=== PATIENT | female | born 1955 | race Hispanic/Latino ===

== ENCOUNTER 2021-10-26 20:06 | Inpatient (IN) | payer MEDICARE ==
[~2021-10-26] VITALS: Ht 152.4 cm; Wt 88.8 kg
[2021-10-26] MEDS ORDERED: ACETAMINOPHEN 120 MG SUPPOSITORY RC ONE (20:26)
[2021-10-26] MEDS ORDERED: DOXYCYCLINE HYCLATE 100 MG TABLET PO SCH (20:30)
[2021-10-26] MEDS ORDERED: CEFTRIAXONE 1G VIAL IVP ONE (20:30)
[2021-10-26] MEDS ORDERED: METOPROLOL TARTRATE 1 MG/ML 5ML VIAL IV ONE (20:30)
[2021-10-26 20:35] LABS: ABG BASE EXCESS -15.6 mmol/L (-2.0-3.0); ABG OXYGEN SATURATION 95.4 % (95.0-99.0); ABG PCO2 29 mmHg (32-45)
[2021-10-26 20:37] LABS: BASOPHILS % (AUTO) 0.6 % (0.0-5.0); EOSINOPHILS % (AUTO) 0.1 % (0.0-8.0); HEMATOCRIT 35.7 % (36-48); LYMPHOCYTES % (AUTO) 20.4 % (21.0-51.0); MEAN CORPUSCULAR HEMOGLOBIN 31.8 pg (27.0-33.0); MEAN CORPUSCULAR HGB CONC 31.9 g/dL (32.0-36.0); MEAN CORPUSCULAR VOLUME 99.7 fL (79-99); MONOCYTES % (AUTO) 9.3 % (3.0-13.0); NEUTROPHILS % (AUTO) 66.5 % (40.0-77.0); PLATELET COUNT (AUTO) 237 K/uL (130-400); RED BLOOD CELL COUNT(AUTO) 3.58 MIL/uL (4.00-5.50); RED CELL DISTRIBUTION WIDTH 14.5 % (11.0-15.5); WHITE BLOOD COUNT (AUTO) 9.4 K/uL (4.8-10.8)
[2021-10-26 20:51] LABS: CREATININE 2.3 mg/dL (0.5-1.5)
[2021-10-26 20:57] LABS: APPEARANCE,URINE Cloudy (CLEAR); BILIRUBIN,URINE Small (NEGATIVE); COLOR,URINE Dark Yellow (YELLOW); GLUCOSE, URINE (UA) 250 mg/dL (NEGATIVE); KETONES,URINE Trace mg/dL (NEGATIVE); LEUKOCYTE ESTERASE ,URINE Negative (NEGATIVE); NITRATE,URINE Negative (NEGATIVE); OCCULT BLOOD,URINE Large (NEGATIVE); PH,URINE 5.5 (5.0-8.0); PROTEIN,URINE >=1000 mg/dL (NEGATIVE)
[2021-10-26] MEDS: SODIUM BICARB 50MEQ 50ML VIAL IV SCH (21:00)
[2021-10-26 21:03] LABS: B-TYPE NATRIURETIC PEPTIDE 652 pg/mL (0-100)
[2021-10-26 21:14] LABS: BILIRUBIN,TOTAL 1.8 mg/dL (0.2-1.0); TOTAL PROTEIN, SERUM 8.1 g/dL (6.0-8.3)
[2021-10-26 21:21] LABS: BACTERIA,URINE Few /HPF (None Seen); RBC,URINE None Seen /HPF (0-1); SQUAMOUS EPITHELIAL CELL,UR Many /HPF (0-2)
[2021-10-26] MEDS ORDERED: AZITHROMYCIN 500MG+NS 250ML IVPB SCH (21:30)
[2021-10-26] MEDS ORDERED: DEXAMETHASONE SOD PHOSPHATE 4 MG/ML 1ML VIAL IVP ONE (21:30)
[2021-10-26 23:35] LABS: INR 1.09 (0.85-1.15); PROTHROMBIN TIME 11.8 SEC (9.6-11.6)
[2021-10-26 23:37] LABS: PARTIAL THROMBOPLASTIN TIME 25.3 SEC (26.3-35.5)
[2021-10-27] VITALS (19 sets, daily range): BP systolic 108–164; BP diastolic 60–79
[2021-10-27] MEDS ORDERED: ATOR20TA65 PO (04:57)
[2021-10-27] MEDS ORDERED: GABA800T9 PO ×2 (04:57→08:38)
[2021-10-27] MEDS ORDERED: INSU100C14 SQ (04:57)
[2021-10-27] MEDS ORDERED: VITAD50000 PO (04:57)
[2021-10-27] MEDS ORDERED: IRBE300T18 PO (04:57)
[2021-10-27] MEDS ORDERED: METF-444 PO (04:57)
[2021-10-27] MEDS ORDERED: INSLAN SQ ×2 (04:57)
[2021-10-27] MEDS ORDERED: METO-408 PO (04:57)
[2021-10-27] MEDS: INSULIN HUMULIN R 100 UNIT/ML 3ML SQ SCH ×4 (06:48→20:20)
[2021-10-27 07:43] LABS: ABG OXYGEN SATURATION 99.4 % (95.0-99.0); ABG PCO2 31 mmHg (32-45)
[2021-10-27] MEDS ORDERED: BUDESONIDE 0.5 MG/2 ML INH IH ONE (07:48)
[2021-10-27] MEDS ORDERED: IPRATROPIUM/ALBUTEROL SULFATE 3 ML SOLUTION IH ONE (07:48)
[2021-10-27] MEDS ORDERED: SODIUM CHLORIDE 7% INHALATION 4 ML VIAL.NEB IH ONE (07:48)
[2021-10-27] MEDS: BUDESONIDE 0.25 MG/2 ML INH IH SCH ×2 (08:00→18:53)
[2021-10-27] MEDS ORDERED: 0.9%NACL 1000ML 1,000 ML IV SCH (08:00)
[2021-10-27] MEDS: ALBUTEROL 0.042% 1.25MG/3ML IH SCH ×4 (08:00→23:20)
[2021-10-27] MEDS ORDERED: PHARMACY COMMUNICATION MISC SCH (08:00)
[2021-10-27 08:20] LABS: HEMATOCRIT 31.3 % (36-48); MEAN CORPUSCULAR HEMOGLOBIN 32.9 pg (27.0-33.0); MEAN CORPUSCULAR HGB CONC 33.9 g/dL (32.0-36.0); MEAN CORPUSCULAR VOLUME 97.2 fL (79-99); NUCLEATED RED BLOOD CELLS 0.5 % (0.0-0.19); PLATELET COUNT (AUTO) 236 K/uL (130-400); RED BLOOD CELL COUNT(AUTO) 3.22 MIL/uL (4.00-5.50); RED CELL DISTRIBUTION WIDTH 14.6 % (11.0-15.5); WHITE BLOOD COUNT (AUTO) 14.6 K/uL (4.8-10.8)
[2021-10-27] MEDS ORDERED: METO-391 PO (08:38)
[2021-10-27] MEDS ORDERED: IRBE150T24 PO (08:38)
[2021-10-27] MEDS ORDERED: OMEP20TA20 PO (08:38)
[2021-10-27] MEDS ORDERED: PRAV10TA39 PO (08:38)
[2021-10-27] MEDS ORDERED: SPIR25TA6 PO (08:38)
[2021-10-27 08:43] LABS: ALBUMIN 2.6 g/dL (3.5-5.0); BILIRUBIN,TOTAL 1.4 mg/dL (0.2-1.0); CREATININE 2.7 mg/dL (0.5-1.5); POTASSIUM 4.3 mmol/L (3.5-5.1)
[2021-10-27] MEDS ORDERED: ENOXAPARIN SODIUM 1 MG/KG SQ SCH (09:00)
[2021-10-27] MEDS ORDERED: HEPARIN 5,000 UNIT VIAL SQ SCH ×2 (09:00→22:00)
[2021-10-27 09:03] LABS: BAND NEUTROPHILS % (MANUAL) 3 % (0-2); EOSINOPHILS % (MANUAL) 5 % (1-6); LYMPHOCYTES % (MANUAL) 10 % (22-44); REACTIVE LYMPHOCYTES 1 % (0-0); SEGMENTED NEUTROPHILS % 81 % (40-70)
[2021-10-27 09:04] LABS: MAN.DIFF COMMENT-IMPRESSION MANUAL DIFFERENTIAL
[2021-10-27 09:05] LABS: PLATELET MORPHOLOGY COMMENT ADEQUATE
[2021-10-27] MEDS: PANTOPRAZOLE 40 MG/VIAL IVP SCH (09:06)
[2021-10-27] MEDS: DEXAMETHASONE SOD PHOSPHATE 4 MG/ML 1ML VIAL IV SCH (09:06)
[2021-10-27] MEDS: ASPIRIN 81MG CHEW TAB PO SCH (09:06)
[2021-10-27] MEDS: CEFTRIAXONE 2GM VIAL IVP SCH (09:06)
[2021-10-27] MEDS: DOXYCYCLINE 100MG+NS 250ML IV SCH ×2 (09:06→20:21)
[2021-10-27] MEDS: ARTIFICAL TEARS SOL 15 ML OU SCH (09:07)
[2021-10-27] MEDS: FUROSEMIDE 40MG VIAL IV SCH ×2 (10:30→11:25)
[2021-10-27 10:41] LABS: MYOGLOBIN 3075 ng/mL (10-92)
[2021-10-27 10:50] LABS: CREATINE KINASE, TOTAL 2516 U/L (21-232)
[2021-10-27] MEDS: KCL 20 MEQ ERTAB PO SCH (11:24)
[2021-10-27] MEDS ORDERED: FUROSEMIDE 20MG VIAL IV SCH (12:00)
[2021-10-27] MEDS ORDERED: ASPIRIN 325MG TAB PO SCH (12:00)
[2021-10-27] MEDS ORDERED: HEPARIN 25,000 UNITS/250ML D5W 250 ML IV SCH (12:00)
[2021-10-27] MEDS: FUROSEMIDE 20MG VIAL IV SCH ×2 (13:00→20:25)
[2021-10-27] MEDS ORDERED: DOBUTAMINE 250MG/D5 250ML 250 ML IV SCH (13:00)
[2021-10-27] MEDS ORDERED: CLOPIDOGREL 300MG TAB PO SCH (13:00)
[2021-10-27 13:02] LABS: HEMATOCRIT 32.3 % (36-48); MEAN CORPUSCULAR HEMOGLOBIN 32.7 pg (27.0-33.0); MEAN CORPUSCULAR HGB CONC 33.4 g/dL (32.0-36.0); MEAN CORPUSCULAR VOLUME 97.9 fL (79-99); NUCLEATED RED BLOOD CELLS 0.6 % (0.0-0.19); PLATELET COUNT (AUTO) 225 K/uL (130-400); RED CELL DISTRIBUTION WIDTH 14.8 % (11.0-15.5)
[2021-10-27] MEDS: SODIUM BICARB 50MEQ 50ML VIAL IV SCH ×2 (13:28→21:00)
[2021-10-27 13:43] LABS: BAND NEUTROPHILS % (MANUAL) 4 % (0-2); LYMPHOCYTES % (MANUAL) 7 % (22-44); MAN.DIFF COMMENT-IMPRESSION MANUAL DIFFERENTIAL; MONOCYTES % (MANUAL) 4 % (2-9); SEGMENTED NEUTROPHILS % 85 % (40-70)
[2021-10-27 13:47] LABS: PLATELET MORPHOLOGY COMMENT ADEQUATE
[2021-10-27] MEDS ORDERED: SODIUM BICARB 8.4% 50ML SYRING 0 MEQ in DEXTROSE 5%-WATER 1,000 ML IVP SCH (16:00)
[2021-10-27] MEDS: SODIUM BICARB 8.4% 50ML SYRING 150 MEQ in DEXTROSE 5%-WATER 1,000 ML IVP SCH (18:22)
[2021-10-27] MEDS ORDERED: 0.9% NACL 250ML 250 ML ONE (20:23)
[2021-10-27] MEDS ORDERED: INSULIN GLARGINE 100 UNITS/ML 10 ML VIAL SQ SCH (21:00)
[2021-10-27] MEDS ORDERED: HEPARIN 5,000 UNIT VIAL IV SCH (22:30)
[2021-10-28] VITALS (21 sets, daily range): BP systolic 101–153; BP diastolic 56–93
[2021-10-28] MEDS ORDERED: INSULIN HUMULIN R 100 UNIT/ML 3ML SQ ONE (01:00)
[2021-10-28 04:05] LABS: HEMATOCRIT 30.4 % (36-48); MEAN CORPUSCULAR HEMOGLOBIN 32.2 pg (27.0-33.0); MEAN CORPUSCULAR HGB CONC 33.2 g/dL (32.0-36.0); MEAN CORPUSCULAR VOLUME 96.8 fL (79-99); NUCLEATED RED BLOOD CELLS 0.7 % (0.0-0.19); PLATELET COUNT (AUTO) 221 K/uL (130-400); RED BLOOD CELL COUNT(AUTO) 3.14 MIL/uL (4.00-5.50); RED CELL DISTRIBUTION WIDTH 14.6 % (11.0-15.5); WHITE BLOOD COUNT (AUTO) 17.5 K/uL (4.8-10.8)
[2021-10-28] MEDS: SODIUM BICARB 8.4% 50ML SYRING 150 MEQ in DEXTROSE 5%-WATER 1,000 ML IVP SCH (04:07)
[2021-10-28 04:15] LABS: INR 1.13 (0.85-1.15); PROTHROMBIN TIME 12.2 SEC (9.6-11.6)
[2021-10-28] MEDS: FUROSEMIDE 20MG VIAL IV SCH ×3 (04:34→21:30)
[2021-10-28 04:36] LABS: PARTIAL THROMBOPLASTIN TIME > 139.0 SEC (26.3-35.5)
[2021-10-28 04:45] LABS: LYMPHOCYTES % (MANUAL) 4 % (22-44); MAN.DIFF COMMENT-IMPRESSION MANUAL DIFFERENTIAL; MONOCYTES % (MANUAL) 3 % (2-9); SEGMENTED NEUTROPHILS % 93 % (40-70)
[2021-10-28 04:55] LABS: MAGNESIUM 1.7 mg/dL (1.80-2.40); PHOSPHORUS 2.2 mg/dL (2.5-4.9)
[2021-10-28] MEDS: ALBUTEROL 0.042% 1.25MG/3ML IH SCH ×4 (06:46→23:57)
[2021-10-28] MEDS: BUDESONIDE 0.25 MG/2 ML INH IH SCH ×2 (06:47→17:27)
[2021-10-28 08:04] LABS: ALBUMIN 2.1 g/dL (3.5-5.0); BILIRUBIN,TOTAL 0.6 mg/dL (0.2-1.0); CREATININE 2.1 mg/dL (0.5-1.5); TOTAL PROTEIN, SERUM 6.3 g/dL (6.0-8.3)
[2021-10-28] MEDS: ASPIRIN 81MG CHEW TAB PO SCH (08:35)
[2021-10-28] MEDS: Vitamin B Complex/Vit C/Folic Acid PO SCH (08:36)
[2021-10-28] MEDS: ARTIFICAL TEARS SOL 15 ML OU SCH (08:36)
[2021-10-28] MEDS: CLOPIDOGREL 75MG TAB PO SCH (08:36)
[2021-10-28] MEDS: KCL 20 MEQ ERTAB PO SCH (08:36)
[2021-10-28] MEDS: DOXYCYCLINE 100MG+NS 250ML IV SCH ×2 (08:36→21:30)
[2021-10-28] MEDS: CEFTRIAXONE 2GM VIAL IVP SCH (08:37)
[2021-10-28] MEDS: PANTOPRAZOLE 40 MG/VIAL IVP SCH (08:37)
[2021-10-28] MEDS: DEXAMETHASONE SOD PHOSPHATE 4 MG/ML 1ML VIAL IV SCH (08:37)
[2021-10-28] MEDS ORDERED: CLOPIDOGREL 75MG TAB PO SCH (09:00)
[2021-10-28] MEDS: INSULIN HUMULIN R 100 UNIT/ML 3ML SQ SCH ×4 (09:34→21:00)
[2021-10-28] MEDS: 0.9%NACL 1000ML 1,000 ML IV SCH ×2 (09:34→21:53)
[2021-10-28] MEDS: NEUTRA-PHOS PACKET 1 EACH PO SCH (09:35)
[2021-10-28] MEDS: MAGNESIUM OXIDE 400 MG TABLET PO SCH (09:35)
[2021-10-28] MEDS: INSULIN GLARGINE 100 UNITS/ML 10 ML VIAL SQ SCH ×2 (09:36→21:38)
[2021-10-28] MEDS: GUAIFENESIN-CODEINE 5 ML SYRUP PO PRN ×3 (10:14→23:27)
[2021-10-28] MEDS: SODIUM BICARB 50MEQ 50ML VIAL IV SCH ×2 (11:52→21:30)
[2021-10-28] MEDS ORDERED: LOPERAMIDE HCL 2 MG CAP PO ONE (12:25)
[2021-10-28] MEDS ORDERED: LOPERAMIDE HCL 2 MG CAP PO SCH (12:30)
[2021-10-28] MEDS ORDERED: KCL 20 MEQ ERTAB PO PRN (13:00)
[2021-10-28] MEDS ORDERED: POTASSIUM CHLORIDE 10% ELIXIR 20 MEQ/15 ML UDCUP PO PRN (13:00)
[2021-10-28] MEDS ORDERED: LIDOCAINE HCL-MPF 1% 2ML VIAL IV PRN (13:00)
[2021-10-28 13:55] LABS: PROTEIN,URINE RANDOM 20.7 mg/dL (0-11.9)
[2021-10-28 14:22] LABS: MAGNESIUM 1.7 mg/dL (1.80-2.40)
[2021-10-28 14:28] LABS: POTASSIUM 2.7 mmol/L (3.5-5.1)
[2021-10-28] MEDS ORDERED: MAGNESIUM 2GM PREMIX 50ML 50 ML IV ONE (14:33)
[2021-10-28] MEDS: POTASSIUM CHLORIDE 10MEQ/100ML 100 ML IV PRN ×2 (14:35→18:51)
[2021-10-28] MEDS ORDERED: MAGNESIUM 2GM PREMIX 50ML 50 ML IV SCH (15:00)
[2021-10-28 17:00] LABS: MAGNESIUM 2.2 mg/dL (1.80-2.40); POTASSIUM 3.1 mmol/L (3.5-5.1)
[2021-10-29] VITALS (16 sets, daily range): BP systolic 113–155; BP diastolic 50–90
[2021-10-29 03:48] LABS: BASOPHILS % (AUTO) 0.3 % (0.0-5.0); HEMATOCRIT 31.2 % (36-48); LYMPHOCYTES % (AUTO) 6.8 % (21.0-51.0); MEAN CORPUSCULAR HEMOGLOBIN 32.4 pg (27.0-33.0); MEAN CORPUSCULAR HGB CONC 33.7 g/dL (32.0-36.0); MEAN CORPUSCULAR VOLUME 96.3 fL (79-99); MONOCYTES % (AUTO) 6.4 % (3.0-13.0); NEUTROPHILS % (AUTO) 84.5 % (40.0-77.0); NUCLEATED RED BLOOD CELLS 1.3 % (0.0-0.19); PLATELET COUNT (AUTO) 230 K/uL (130-400); RED BLOOD CELL COUNT(AUTO) 3.24 MIL/uL (4.00-5.50); WHITE BLOOD COUNT (AUTO) 19.7 K/uL (4.8-10.8)
[2021-10-29 04:13] LABS: ALBUMIN 2.2 g/dL (3.5-5.0); BILIRUBIN,TOTAL 0.7 mg/dL (0.2-1.0); CREATININE 1.4 mg/dL (0.5-1.5); MAGNESIUM 2.2 mg/dL (1.80-2.40); PHOSPHORUS 2.5 mg/dL (2.5-4.9); POTASSIUM 3.7 mmol/L (3.5-5.1); TOTAL PROTEIN, SERUM 6.2 g/dL (6.0-8.3)
[2021-10-29 04:19] LABS: B-TYPE NATRIURETIC PEPTIDE 696 pg/mL (0-100)
[2021-10-29] MEDS: FUROSEMIDE 20MG VIAL IV SCH ×2 (04:59→13:10)
[2021-10-29] MEDS: GUAIFENESIN-CODEINE 5 ML SYRUP PO PRN (05:18)
[2021-10-29] MEDS: INSULIN GLARGINE 100 UNITS/ML 10 ML VIAL SQ SCH (05:24)
[2021-10-29] MEDS: INSULIN HUMULIN R 100 UNIT/ML 3ML SQ SCH ×2 (05:25→12:31)
[2021-10-29] MEDS: ALBUTEROL 0.042% 1.25MG/3ML IH SCH (06:47)
[2021-10-29] MEDS: BUDESONIDE 0.25 MG/2 ML INH IH SCH (06:47)
[2021-10-29] MEDS: ARTIFICAL TEARS SOL 15 ML OU SCH (08:30)
[2021-10-29] MEDS: CEFTRIAXONE 2GM VIAL IVP SCH (08:32)
[2021-10-29] MEDS: DOXYCYCLINE 100MG+NS 250ML IV SCH ×2 (08:32→21:16)
[2021-10-29] MEDS: NEUTRA-PHOS PACKET 1 EACH PO SCH (08:33)
[2021-10-29] MEDS: ASPIRIN 81MG CHEW TAB PO SCH (08:33)
[2021-10-29] MEDS: CLOPIDOGREL 75MG TAB PO SCH (08:33)
[2021-10-29] MEDS: ENOXAPARIN SODIUM 80 MG/0.8 ML SQ SCH (08:36)
[2021-10-29] MEDS: PANTOPRAZOLE 40 MG/VIAL IVP SCH (08:37)
[2021-10-29] MEDS: KCL 20 MEQ ERTAB PO SCH (08:37)
[2021-10-29] MEDS: Vitamin B Complex/Vit C/Folic Acid PO SCH (08:37)
[2021-10-29] MEDS: MAGNESIUM OXIDE 400 MG TABLET PO SCH (08:38)
[2021-10-29] MEDS ORDERED: SOLU-MEDROL 40MG VIAL IVP SCH (09:00)
[2021-10-29] MEDS ORDERED: BUDESONIDE 0.25 MG/2 ML INH IH PRN (10:30)
[2021-10-29] MEDS ORDERED: ALBUTEROL 0.042% 1.25MG/3ML IH PRN (10:30)
[2021-10-29] MEDS: 0.9%NACL 1000ML 1,000 ML IV SCH (12:10)
[2021-10-29] MEDS: SODIUM BICARB 50MEQ 50ML VIAL IV SCH (12:32)
[2021-10-29] MEDS ORDERED: SPIRONOLACTONE 25 MG TAB PO SCH (15:00)
[2021-10-29] MEDS ORDERED: METOPROLOL SUCCINATE 50 MG TAB.SR.24H PO SCH (15:00)
[2021-10-29] MEDS: FAMOTIDINE 20MG TAB PO SCH (15:30)
[2021-10-29] MEDS: INSULIN LISPRO 100 UNIT/ML 3ML SQ SCH ×3 (16:47→21:00)
[2021-10-29] MEDS ORDERED: INSULIN GLARGINE 100 UNITS/ML 10 ML VIAL SQ SCH (21:00)
[2021-10-29] MEDS: GUAIFENESIN SUGAR-FREE 100 MG/5 ML UDCUP PO PRN (23:59)
[2021-10-30 04:00] VITALS: BP 144/82
[2021-10-30 04:36] LABS: BASOPHILS % (AUTO) 0.1 % (0.0-5.0); HEMATOCRIT 29.7 % (36-48); LYMPHOCYTES % (AUTO) 11.8 % (21.0-51.0); MEAN CORPUSCULAR HEMOGLOBIN 32.2 pg (27.0-33.0); MEAN CORPUSCULAR HGB CONC 33.3 g/dL (32.0-36.0); MEAN CORPUSCULAR VOLUME 96.7 fL (79-99); MONOCYTES % (AUTO) 6.8 % (3.0-13.0); NEUTROPHILS % (AUTO) 78.2 % (40.0-77.0); NUCLEATED RED BLOOD CELLS 1.9 % (0.0-0.19); PLATELET COUNT (AUTO) 218 K/uL (130-400); RED BLOOD CELL COUNT(AUTO) 3.07 MIL/uL (4.00-5.50); RED CELL DISTRIBUTION WIDTH 15.1 % (11.0-15.5); WHITE BLOOD COUNT (AUTO) 17.5 K/uL (4.8-10.8)
[2021-10-30 05:03] LABS: CREATININE 1.2 mg/dL (0.5-1.5); PHOSPHORUS 1.8 mg/dL (2.5-4.9); POTASSIUM 3.8 mmol/L (3.5-5.1)
[2021-10-30] MEDS: INSULIN LISPRO 100 UNIT/ML 3ML SQ SCH ×7 (06:16→20:08)
[2021-10-30 08:00] VITALS: BP 113/55
[2021-10-30] MEDS: Vitamin B Complex/Vit C/Folic Acid PO SCH (08:06)
[2021-10-30] MEDS: DOXYCYCLINE 100MG+NS 250ML IV SCH ×2 (08:06→20:06)
[2021-10-30] MEDS: CEFTRIAXONE 2GM VIAL IVP SCH (08:06)
[2021-10-30] MEDS: CLOPIDOGREL 75MG TAB PO SCH (08:07)
[2021-10-30] MEDS: ASPIRIN 81MG CHEW TAB PO SCH (08:07)
[2021-10-30] MEDS: METOPROLOL SUCCINATE 50 MG TAB.SR.24H PO SCH (08:08)
[2021-10-30] MEDS: KCL 20 MEQ ERTAB PO SCH (08:08)
[2021-10-30] MEDS: FAMOTIDINE 20MG TAB PO SCH (08:08)
[2021-10-30] MEDS: ENOXAPARIN SODIUM 80 MG/0.8 ML SQ SCH (08:09)
[2021-10-30] MEDS: NEUTRA-PHOS PACKET 1 EACH PO SCH ×5 (08:12→20:15)
[2021-10-30] MEDS: MAGNESIUM OXIDE 400 MG TABLET PO SCH (08:12)
[2021-10-30 08:38] LABS: % IRON SATURATION 26.9 % (22-44)
[2021-10-30] MEDS: ARTIFICAL TEARS SOL 15 ML OU SCH (08:42)
[2021-10-30 08:43] LABS: RETICULOCYTE % (AUTO) 3.45 % (0.42-2.23)
[2021-10-30] MEDS: LOSARTAN 25 MG TABLET PO SCH (08:52)
[2021-10-30 08:58] LABS: HEMOGLOBIN A1C 7.2 % (4.0-6.0)
[2021-10-30] MEDS ORDERED: FUROSEMIDE 20 MG TABLET PO SCH (09:00)
[2021-10-30] MEDS ORDERED: SPIRONOLACTONE 25 MG TAB PO SCH (09:00)
[2021-10-30] MEDS ORDERED: GABAPENTIN 100 MG CAPSULE PO SCH (09:00)
[2021-10-30] MEDS ORDERED: FUROSEMIDE 40 MG TABLET PO SCH (09:00)
[2021-10-30 09:08] LABS: THYROID STIMULATING HORMONE 0.08 uIU/mL (0.36-3.74)
[2021-10-30 09:34] LABS: INR 1.09 (0.85-1.15); PROTHROMBIN TIME 11.8 SEC (9.6-11.6)
[2021-10-30] MEDS ORDERED: GUAIFENESIN 600 MG TABLET.ER PO PRN (10:00)
[2021-10-30 12:28] VITALS: BP 137/71
[2021-10-30] MEDS: LOPERAMIDE 1 MG/7.5 ML UDCUP PO SCH (14:31)
[2021-10-30 16:40] VITALS: BP 133/48
[2021-10-30 19:00] VITALS: BP 136/57
[2021-10-30] MEDS: FUROSEMIDE 20 MG TABLET PO SCH (20:07)
[2021-10-30] MEDS: INSULIN GLARGINE 100 UNITS/ML 10 ML VIAL SQ SCH (20:09)
[2021-10-30] MEDS: GABAPENTIN 100 MG CAPSULE PO SCH (20:14)
[2021-10-30] MEDS: GUAIFENESIN SUGAR-FREE 100 MG/5 ML UDCUP PO PRN (20:29)
[2021-10-30 23:25] VITALS: BP_SYST 115; BP_SYST 119; BP_DIAS 63; BP_DIAS 70
[2021-10-31 04:56] VITALS: BP 156/75
[2021-10-31 07:02] VITALS: BP 119/67
[2021-10-31] MEDS: INSULIN LISPRO 100 UNIT/ML 3ML SQ SCH ×7 (07:30→20:40)
[2021-10-31] MEDS ORDERED: EPOETIN ALFA-EPBX (NON-ESRD) 10,000 UNIT/ML VIAL SQ SCH (08:30)
[2021-10-31] MEDS ORDERED: CLOP75TA14 PO (08:40)
[2021-10-31] MEDS ORDERED: SPIR25TA6 PO (08:40)
[2021-10-31] MEDS ORDERED: ATOR20TA65 PO (08:40)
[2021-10-31] MEDS ORDERED: FURO20TA6 PO (08:40)
[2021-10-31] MEDS ORDERED: EMPA25TA PO (08:40)
[2021-10-31] MEDS ORDERED: ASPI-1005 PO (08:40)
[2021-10-31] MEDS ORDERED: METO-408 PO (08:40)
[2021-10-31] MEDS ORDERED: Folic Acid/Vitamin B Comp W-C PO (08:40)
[2021-10-31] MEDS ORDERED: EMPA10TA PO (08:40)
[2021-10-31] MEDS ORDERED: LOSA25TA2 PO (08:40)
[2021-10-31] MEDS: LOSARTAN 25 MG TABLET PO SCH (09:00)
[2021-10-31] MEDS: NEUTRA-PHOS PACKET 1 EACH PO SCH ×3 (09:30→12:20)
[2021-10-31] MEDS: MAGNESIUM OXIDE 400 MG TABLET PO SCH (09:30)
[2021-10-31] MEDS: DOXYCYCLINE 100MG+NS 250ML IV SCH ×2 (09:36→20:38)
[2021-10-31] MEDS: CEFTRIAXONE 2GM VIAL IVP SCH (09:36)
[2021-10-31] MEDS: BALSAM PERU/CASTOR OIL 60 GM TUBE TP SCH ×2 (09:38→20:40)
[2021-10-31] MEDS: GABAPENTIN 100 MG CAPSULE PO SCH ×4 (09:38→20:39)
[2021-10-31] MEDS: ENOXAPARIN SODIUM 80 MG/0.8 ML SQ SCH (09:38)
[2021-10-31] MEDS: Vitamin B Complex/Vit C/Folic Acid PO SCH (09:39)
[2021-10-31] MEDS: FUROSEMIDE 20 MG TABLET PO SCH (09:39)
[2021-10-31] MEDS: SPIRONOLACTONE 25 MG TAB PO SCH (09:39)
[2021-10-31] MEDS: METOPROLOL SUCCINATE 50 MG TAB.SR.24H PO SCH (09:39)
[2021-10-31] MEDS: KCL 20 MEQ ERTAB PO SCH (09:40)
[2021-10-31] MEDS: FAMOTIDINE 20MG TAB PO SCH (09:40)
[2021-10-31] MEDS: CLOPIDOGREL 75MG TAB PO SCH (09:40)
[2021-10-31] MEDS: ARTIFICAL TEARS SOL 15 ML OU SCH (09:41)
[2021-10-31] MEDS: ASPIRIN 81MG CHEW TAB PO SCH (09:41)
[2021-10-31 12:00] VITALS: BP 151/72
[2021-10-31 13:45] LABS: BASOPHILS % (AUTO) 0.2 % (0.0-5.0); EOSINOPHILS % (AUTO) 0.2 % (0.0-8.0); HEMATOCRIT 34.1 % (36-48); LYMPHOCYTES % (AUTO) 15.2 % (21.0-51.0); MEAN CORPUSCULAR HEMOGLOBIN 32.1 pg (27.0-33.0); MEAN CORPUSCULAR HGB CONC 32.8 g/dL (32.0-36.0); MEAN CORPUSCULAR VOLUME 97.7 fL (79-99); MONOCYTES % (AUTO) 5.5 % (3.0-13.0); NEUTROPHILS % (AUTO) 75.2 % (40.0-77.0); NUCLEATED RED BLOOD CELLS 2.2 % (0.0-0.19); PLATELET COUNT (AUTO) 252 K/uL (130-400); RED BLOOD CELL COUNT(AUTO) 3.49 MIL/uL (4.00-5.50); RED CELL DISTRIBUTION WIDTH 15.3 % (11.0-15.5); WHITE BLOOD COUNT (AUTO) 16.9 K/uL (4.8-10.8)
[2021-10-31 13:50] LABS: CREATININE 1.2 mg/dL (0.5-1.5); POTASSIUM 3.8 mmol/L (3.5-5.1)
[2021-10-31 14:00] LABS: B-TYPE NATRIURETIC PEPTIDE 481 pg/mL (0-100)
[2021-10-31] MEDS: LOPERAMIDE 1 MG/7.5 ML UDCUP PO SCH (14:30)
[2021-10-31] MEDS: FUROSEMIDE 20MG VIAL IV SCH ×2 (15:26→20:39)
[2021-10-31 16:00] VITALS: BP 129/82
[2021-10-31 19:18] VITALS: BP 131/66
[2021-10-31] MEDS: INSULIN GLARGINE 100 UNITS/ML 10 ML VIAL SQ SCH (20:40)
[2021-10-31] MEDS: GUAIFENESIN SUGAR-FREE 100 MG/5 ML UDCUP PO PRN (21:42)
[2021-10-31 23:00] VITALS: BP 128/58
[2021-11-01] VITALS (14 sets, daily range): BP systolic 110–166; BP diastolic 48–80
[2021-11-01] MEDS ORDERED: DEXTROSE 50%-WATER 50 ML DISP.SYRIN IV ONE ×2 (05:58→06:00)
[2021-11-01 06:26] LABS: HEMATOCRIT 29.8 % (36-48); MEAN CORPUSCULAR HEMOGLOBIN 32.8 pg (27.0-33.0); MEAN CORPUSCULAR HGB CONC 33.2 g/dL (32.0-36.0); MEAN CORPUSCULAR VOLUME 98.7 fL (79-99); NUCLEATED RED BLOOD CELLS 2.3 % (0.0-0.19); RED BLOOD CELL COUNT(AUTO) 3.02 MIL/uL (4.00-5.50); RED CELL DISTRIBUTION WIDTH 15.4 % (11.0-15.5)
[2021-11-01 06:38] LABS: CREATININE 1.2 mg/dL (0.5-1.5); POTASSIUM 3.6 mmol/L (3.5-5.1)
[2021-11-01] MEDS: INSULIN LISPRO 100 UNIT/ML 3ML SQ SCH ×4 (06:46→21:00)
[2021-11-01 06:58] LABS: CREATINE KINASE, TOTAL 296 U/L (21-232); MYOGLOBIN 349 ng/mL (10-92)
[2021-11-01] MEDS: NEUTRA-PHOS PACKET 1 EACH PO SCH (07:24)
[2021-11-01] MEDS: MAGNESIUM OXIDE 400 MG TABLET PO SCH (07:24)
[2021-11-01] MEDS: ARTIFICAL TEARS SOL 15 ML OU SCH (07:24)
[2021-11-01] MEDS: Vitamin B Complex/Vit C/Folic Acid PO SCH (07:26)
[2021-11-01] MEDS: ENOXAPARIN SODIUM 80 MG/0.8 ML SQ SCH (07:26)
[2021-11-01] MEDS: FAMOTIDINE 20MG TAB PO SCH (07:27)
[2021-11-01] MEDS: SPIRONOLACTONE 25 MG TAB PO SCH (07:27)
[2021-11-01] MEDS: GABAPENTIN 100 MG CAPSULE PO SCH ×3 (07:27→21:20)
[2021-11-01] MEDS: CEFTRIAXONE 2GM VIAL IVP SCH (08:13)
[2021-11-01] MEDS: DOXYCYCLINE 100MG+NS 250ML IV SCH ×2 (08:13→21:20)
[2021-11-01] MEDS: KCL 20 MEQ ERTAB PO SCH (08:13)
[2021-11-01] MEDS: LOSARTAN 25 MG TABLET PO SCH (08:14)
[2021-11-01] MEDS: METOPROLOL SUCCINATE 50 MG TAB.SR.24H PO SCH (08:14)
[2021-11-01] MEDS: ASPIRIN 81MG CHEW TAB PO SCH (08:14)
[2021-11-01] MEDS: BALSAM PERU/CASTOR OIL 60 GM TUBE TP SCH ×2 (08:15→21:22)
[2021-11-01] MEDS: CLOPIDOGREL 75MG TAB PO SCH (08:15)
[2021-11-01] MEDS ORDERED: FENTANYL CITRATE PF 50 MCG/1 ML 2ML VIAL ONE (09:12)
[2021-11-01] MEDS ORDERED: IOHEXOL 350 MG/ML 100ML INFUS..BTL IV ONE (09:12)
[2021-11-01] MEDS ORDERED: MIDAZOLAM HCL 1 MG/ML 2ML VIAL ONE (09:13)
[2021-11-01] MEDS ORDERED: IOHEXOL-350 50ML VIAL IV ONE (09:21)
[2021-11-01] MEDS ORDERED: NITROGLYCERIN 50MG VIAL ONE (09:21)
[2021-11-01] MEDS ORDERED: IOHEXOL-350 75 ML VIAL IV ONE (09:52)
[2021-11-01] MEDS ORDERED: BIVALIRUDIN 250 MG/VIAL IV ONE (09:52)
[2021-11-01] MEDS ORDERED: HEPARIN 10,000 UNIT/10ML (1,000 UNIT/ML) VIAL ONE (09:52)
[2021-11-01] MEDS ORDERED: ADENOSINE 90MG VIAL IV ONE (09:59)
[2021-11-01] MEDS ORDERED: 0.9%NACL 1000ML 1,000 ML IV SCH (10:30)
[2021-11-01] MEDS: LOPERAMIDE 1 MG/7.5 ML UDCUP PO SCH (13:59)
[2021-11-01] MEDS: INSULIN GLARGINE 100 UNITS/ML 10 ML VIAL SQ SCH (21:22)
[2021-11-01] MEDS: GUAIFENESIN SUGAR-FREE 100 MG/5 ML UDCUP PO PRN (21:29)
[2021-11-02 03:34] LABS: HEMATOCRIT 29.6 % (36-48); MEAN CORPUSCULAR HEMOGLOBIN 31.9 pg (27.0-33.0); MEAN CORPUSCULAR HGB CONC 32.1 g/dL (32.0-36.0); MEAN CORPUSCULAR VOLUME 99.3 fL (79-99); NUCLEATED RED BLOOD CELLS 1.8 % (0.0-0.19); RED BLOOD CELL COUNT(AUTO) 2.98 MIL/uL (4.00-5.50); RED CELL DISTRIBUTION WIDTH 15.9 % (11.0-15.5)
[2021-11-02 03:42] VITALS: BP 134/70
[2021-11-02 03:45] LABS: POTASSIUM 3.9 mmol/L (3.5-5.1)
[2021-11-02] MEDS: INSULIN LISPRO 100 UNIT/ML 3ML SQ SCH ×3 (06:10→16:30)
[2021-11-02] MEDS: MAGNESIUM OXIDE 400 MG TABLET PO SCH (07:26)
[2021-11-02] MEDS: ARTIFICAL TEARS SOL 15 ML OU SCH (07:26)
[2021-11-02] MEDS: NEUTRA-PHOS PACKET 1 EACH PO SCH (07:26)
[2021-11-02 07:50] VITALS: BP 106/62
[2021-11-02] MEDS: KCL 20 MEQ ERTAB PO SCH (08:46)
[2021-11-02] MEDS: CEFTRIAXONE 2GM VIAL IVP SCH (08:46)
[2021-11-02] MEDS: DOXYCYCLINE 100MG+NS 250ML IV SCH (08:46)
[2021-11-02] MEDS: SPIRONOLACTONE 25 MG TAB PO SCH (08:47)
[2021-11-02] MEDS: FAMOTIDINE 20MG TAB PO SCH (08:47)
[2021-11-02] MEDS: ASPIRIN 81MG CHEW TAB PO SCH (08:47)
[2021-11-02] MEDS: CLOPIDOGREL 75MG TAB PO SCH (08:47)
[2021-11-02] MEDS: GABAPENTIN 100 MG CAPSULE PO SCH ×2 (08:48→14:12)
[2021-11-02] MEDS: LOSARTAN 25 MG TABLET PO SCH (08:48)
[2021-11-02] MEDS: METOPROLOL SUCCINATE 50 MG TAB.SR.24H PO SCH (08:48)
[2021-11-02] MEDS: Vitamin B Complex/Vit C/Folic Acid PO SCH (08:48)
[2021-11-02] MEDS: BALSAM PERU/CASTOR OIL 60 GM TUBE TP SCH (08:49)
[2021-11-02] MEDS: ENOXAPARIN SODIUM 80 MG/0.8 ML SQ SCH (08:49)
[2021-11-02] MEDS ORDERED: FUROSEMIDE 40 MG TABLET PO SCH (09:00)
[2021-11-02 11:39] VITALS: BP 125/66
[2021-11-02] MEDS: LOPERAMIDE 1 MG/7.5 ML UDCUP PO SCH (13:14)
[2021-11-02 16:00] VITALS: BP 150/96
== END 2021-11-02 18:30 | DRG 871 ==
LOC: EDH 20:06 → EDHIP 21:24 → 2CH 10-27 03:42 → 2AH 10-29 12:25
PROVIDERS: ADMIT Internal Medicine; ATTEND Internal Medicine
PROC: 5A09357 Assistance with Respiratory Ventilation, Less than 24 Consecutive Hours, Continuous Positive Airway Pressure (ICD-10-PCS; 2021-10-26)
PROC: 5A09357 Assistance with Respiratory Ventilation, Less than 24 Consecutive Hours, Continuous Positive Airway Pressure (ICD-10-PCS; 2021-10-27)
PROC: 4A023N7 Measurement of Cardiac Sampling and Pressure, Left Heart, Percutaneous Approach (ICD-10-PCS; principal; 2021-11-01)
PROC: B2111ZZ Fluoroscopy of Multiple Coronary Arteries using Low Osmolar Contrast (ICD-10-PCS; 2021-11-01)
PROC: B2151ZZ Fluoroscopy of Left Heart using Low Osmolar Contrast (ICD-10-PCS; 2021-11-01)
PROC: B41F1ZZ Fluoroscopy of Right Lower Extremity Arteries using Low Osmolar Contrast (ICD-10-PCS; 2021-11-01)
DX: A41.9 Sepsis, unspecified organism (principal); J96.01 Acute respiratory failure with hypoxia; I21.A1 Myocardial infarction type 2; I50.23 Acute on chronic systolic (congestive) heart failure; E43 Unspecified severe protein-calorie malnutrition; I13.0 Hypertensive heart and chronic kidney disease with heart failure and stage 1 through stage 4 chronic kidney disease, or unspecified chronic kidney disease; N17.9 Acute kidney failure, unspecified; J44.1 Chronic obstructive pulmonary disease with (acute) exacerbation; J44.0 Chronic obstructive pulmonary disease with (acute) lower respiratory infection; M62.82 Rhabdomyolysis; Z79.899 Other long term (current) drug therapy; Z90.711 Acquired absence of uterus with remaining cervical stump; E11.22 Type 2 diabetes mellitus with diabetic chronic kidney disease; L80 Vitiligo; I73.00 Raynaud's syndrome without gangrene; E87.8 Other disorders of electrolyte and fluid balance, not elsewhere classified; I25.5 Ischemic cardiomyopathy; I25.10 Atherosclerotic heart disease of native coronary artery without angina pectoris; M06.9 Rheumatoid arthritis, unspecified; R53.81 Other malaise; T38.0X5A Adverse effect of glucocorticoids and synthetic analogues, initial encounter; M35.00 Sjogren syndrome, unspecified; Z88.8 Allergy status to other drugs, medicaments and biological substances; Z83.3 Family history of diabetes mellitus; E66.9 Obesity, unspecified; D64.9 Anemia, unspecified; E87.6 Hypokalemia; E88.09 Other disorders of plasma-protein metabolism, not elsewhere classified; N18.30 Chronic kidney disease, stage 3 unspecified; Z68.38 Body mass index [BMI] 38.0-38.9, adult; Y92.89 Other specified places as the place of occurrence of the external cause; Z20.822 Contact with and (suspected) exposure to COVID-19
CPT/HCPCS: 36415; 36600; 51702; 71045; 76770; 80048; 80053; 81001; 82435; 82550; 82570; 82607; 82728; 82746; 82803; 82947; 82948; 83036; 83540; 83550; 83605; 83735; 83874; 83880; 84100; 84132; 84145; 84156; 84295; 84443; 84484; 85018; 85025; 85027; 85045; 85378; 85610; 85651; 85730; 86140; 86635; 87040; 87046; 87071; 87177; 87205; 87324; 87385; 87635; 87804; 93005; 93306; 93458; 93970; 94640; 94660; 94664; 94667; 94668; 94760; 99156; 99157; 99291; C1751; C1760; C1894; C9113; C9803; G0378; J0153; J0456; J0583; J0696; J1100; J1250; J1644; J1650; J1815; J1940; J2250; J2920; J3010; J3475; J3490; J7030; J7050; J7070; Q9967

== ENCOUNTER → 2023-11-19 | Outpatient (CLI) | payer OTHER ==
[~2023-11-19] MED LIST: APIX2.5T PO; ATOR40TA71 PO; CHOL200012 PO; FURO20TA4 PO; IOHEXOL 350 MG/ML 100ML INFUS..BTL IV ONE; IRBE150T34 PO; MULT-1367 PO; OMEP20CA12 PO; SPIR50TA5 PO
== END | disposition home or self-care (01) ==
LOC: RAH 10:25
PROVIDERS: ATTEND Student in an Organized Health Care Education/Training Program
DX: I25.10 Atherosclerotic heart disease of native coronary artery without angina pectoris (principal); M47.815 Spondylosis without myelopathy or radiculopathy, thoracolumbar region
CPT/HCPCS: 75574; Q9967

== ENCOUNTER → 2024-01-22 | Outpatient (CLI) | payer OTHER ==
[~2024-01-22] MED LIST changes: -IOHEXOL 350 MG/ML 100ML INFUS..BTL IV ONE
== END | disposition home or self-care (01) ==
LOC: RAH 07:52
PROVIDERS: ATTEND Internal Medicine Gastroenterology
DX: K76.9 Liver disease, unspecified (principal); R94.5 Abnormal results of liver function studies; R93.3 Abnormal findings on diagnostic imaging of other parts of digestive tract; Z90.49 Acquired absence of other specified parts of digestive tract
CPT/HCPCS: 76700; 93975

== ENCOUNTER → 2024-02-26 | Outpatient (CLI) | payer OTHER ==
[2024-02-26 10:21] LABS: CREATININE 1.4 mg/dL (0.5-1.0)
== END | disposition home or self-care (01) ==
LOC: LAB 09:01
PROVIDERS: ATTEND Otolaryngology Plastic Surgery within the Head & Neck
DX: H90.3 Sensorineural hearing loss, bilateral (principal)
CPT/HCPCS: 36415; 82565; 84520

== ENCOUNTER → 2024-02-28 | Outpatient (CLI) | payer OTHER ==
[2024-02-28] MEDS: REGADENOSON 0.4 MG/5 ML PF SYG IVP ONE (14:49)
== END | disposition home or self-care (01) ==
LOC: SHCH 08:43
PROVIDERS: ATTEND Student in an Organized Health Care Education/Training Program
DX: I25.10 Atherosclerotic heart disease of native coronary artery without angina pectoris (principal)
CPT/HCPCS: 78452; 93017; J2785; A9500 ×2

== ENCOUNTER → 2024-03-16 | Outpatient (CLI) | payer OTHER ==
[~2024-03-16] MED LIST changes: +GADOTERATE MEGLUMINE 10 MMOL/20 ML VIAL IV ONE
== END | disposition home or self-care (01) ==
LOC: RAH 08:13
PROVIDERS: ATTEND Otolaryngology Plastic Surgery within the Head & Neck
DX: H90.3 Sensorineural hearing loss, bilateral (principal)
CPT/HCPCS: 70553; A9575

== ENCOUNTER → 2024-04-18 | Outpatient (CLI) | payer OTHER ==
[~2024-04-18] MED LIST changes: -GADOTERATE MEGLUMINE 10 MMOL/20 ML VIAL IV ONE
== END | disposition home or self-care (01) ==
LOC: SHCH 07:38
PROVIDERS: ATTEND Student in an Organized Health Care Education/Training Program
DX: I77.4 Celiac artery compression syndrome (principal); K55.1 Chronic vascular disorders of intestine
CPT/HCPCS: 93975

== ENCOUNTER → 2024-09-15 | Outpatient (CLI) | payer OTHER ==
[2024-09-15 12:31] LABS: ALBUMIN 3.1 g/dL (3.5-5.0); BILIRUBIN,TOTAL 1.4 mg/dL (0.2-1.0); CREATININE 1.3 mg/dL (0.5-1.0); POTASSIUM 5.2 mmol/L (3.5-5.1); TOTAL PROTEIN, SERUM 7.3 g/dL (6.0-8.3)
== END | disposition home or self-care (01) ==
LOC: LAB 09:26
PROVIDERS: ATTEND Student in an Organized Health Care Education/Training Program
DX: E78.2 Mixed hyperlipidemia (principal)
CPT/HCPCS: 36415; 80053; 80061

== ENCOUNTER 2025-04-21 05:39 | Day surgery (SDC) | payer OTHER ==
[2025-04-19 10:38] LABS: IMMATURE GRANULOCYTE ABSOLUTE 0.01 K/uL (0-1); NUCLEATED RED BLOOD CELLS 0.0 % (0.0-0.19); PLATELET COUNT (AUTO) 188 K/uL (130-400); RED BLOOD CELL COUNT(AUTO) 2.83 MIL/uL (4.00-5.50); RED CELL DISTRIBUTION WIDTH 15.0 % (11.0-15.5); WHITE BLOOD COUNT (AUTO) 3.9 K/uL (4.8-10.8)
[2025-04-19 10:39] VITALS: BP 141/57; PULSE 66; RESP 18; TEMP 98.2
--- NOTE | 2025-04-19 10:41 | EKG ---
[facility] Test Date: 2025-04-19 Test Time: 11:29:16 Pat Name: DIANA MAC Department: [facility] Room: Gender: F Chief Service Observer: [id number] : 1955 Requested By: ROLAND NGUYEN Order Number: [id number] Reading MD: Erica Jarvis Measurements Intervals [place] Rate: 59 P: 34 GA: 136 QRS: 8 QRSD: 84 T: 67 QT: 470 QTc: 466 Interpretive Statements Sinus rhythm Low voltage, precordial leads Compared to ECG 10/01/2023 20:13:04 Low QRS voltage now present T-wave abnormality no longer present Electronically Signed On 04-19-2025 13:49:32 PROPERTY DISPOSAL OFFICER by Erica Jarvis Please click the below link to view image of tracing.
[2025-04-19 10:48] LABS: CREATININE 1.5 mg/dL (0.5-1.0); GLOMERULAR FILTR. RATE CALC 38.0 mL/min (>90); GLUCOSE,RANDOM 172.0 mg/dL (70-105); SODIUM SERUM 140.0 mmol/L (136-145); UREA NITROGEN, BLOOD 38.0 mg/dL (7-18)
[2025-04-19 10:48] LABS: APPEARANCE,URINE CLEAR (CLEAR); GLUCOSE, URINE (UA) NEGATIVE (NEGATIVE); LEUKOCYTE ESTERASE ,URINE 75 Leu/uL (NEGATIVE); NITRATE,URINE NEGATIVE (NEGATIVE); OCCULT BLOOD,URINE +- (TRACE) (NEGATIVE)
[2025-04-19 10:49] LABS: ADD UA MICROSCOPIC YES
[2025-04-19 10:50] LABS: INR 1.01 (0.85-1.15)
[2025-04-19 10:58] LABS: SQUAMOUS EPITHELIAL CELL,UR RARE /HPF (0-2)
--- NOTE | 2025-04-19 12:25 | HMCIMG ---
EXAM: CR Chest, 1 View. CLINICAL HISTORY: PRE OP COMPARISON: None provided. FINDINGS: LUNGS: The lungs show no infiltrate or other acute finding. PLEURAL SPACES: No pleural effusion or pneumothorax. MEDIASTINUM: Cardiac size and mediastinal contours within normal limits. BONES: No acute osseous abnormality. IMPRESSION: No acute cardiopulmonary pathology is evident. /[place]
--- NOTE | 2025-04-20 12:16 | NUR ---
RE: LABS REPORTED BUN 38/ CREAT 1.5 AND URINE AEROBIC & SENSITIVITIES PRELIMINARY RESULTS TO DR ROLAND NGUYEN, NO NEW ORDERS RECEIVED.
[2025-04-21] VITALS (9 sets, daily range): BP systolic 131–162; BP diastolic 60–68; PULSE 59–77; RESP 12–18; TEMP 98–98.1
[~2025-04-21] VITALS: Ht 152.4 cm; Wt 77.8 kg
[~2025-04-21 05:39] MED LIST changes: -ATOR40TA71 PO; +FOLI1TAB85 PO; +GABA-1555 PO; +IRON150C5 PO; -SPIR50TA5 PO
[2025-04-21] MEDS: 0.9%NACL 1000ML 1,000 ML IV SCH (07:06)
[2025-04-21] MEDS ORDERED: MIDAZOLAM HCL 1 MG/ML 2ML VIAL ONE ×2 (09:07→10:02)
--- NOTE | 2025-04-21 10:54 | PRN ---
PROCEDURE REPORT DATE OF PROCEDURE: Apr 21, 2025 AREA RELIEF PILOT: [Roland Canales MD ] PROCEDURE PERFORMED: Conscious sedation Ultrasound guided right radial artery access Selective left coronary artery angiogram Selective right coronary artery angiogram Left heart catheterization TR band 13 mario alberto over right radial artery INDICATION: Abnormal CCTA DESCRIPTION OF PROCEDURE: After informed consent was obtained, the patient was prepped and draped in the usual sterile fashion. A 6 [place] arterial sheath was inserted in the right radial artery using ultrasound guidance with first pass wall puncture. The arterial sheath was aspirated and flushed. A 6 [place] JL 3.5 was then advanced to the ascending aorta over an exchange length J-tip guidewire, was aspirated and flushed, and was used for selective coronary angiograms in multiple obliquities. A JR-4 was advanced in a similar fashion to the ascending aorta over the J-tipped guidewire and was used for selective right coronary angiograms in multiple oblique views with findings as outlined below. The JR-4 catheter advanced into the LV and pressures were obtained with a pull-back across the aortic valve. A TR band was placed over right radial artery. FLUOROSCOPY TIME: 2.5 min LEFT HEART HEMODYNAMICS: LVEDP 18 mm Hg and no gradient Ao CORONARY ANGIOGRAM: LEFT MAIN: Patent and 0% stenosis. Gives rise to LCx and LAD. LEFT ANTERIOR DESCENDING: Large vessel giving rise to two Diagonal branches. Ostial to proximal 70- 80% followed by 50 60% proximal stenosis with TERRI three flow. D1 and D2 are widely patent LEFT CIRCUMFLEX: Large and gives rise to two OM branches. Ostial 75-80% stenosis and 20-30% mid stenosis. OM1 has a high takeoff with luminal irregularities. OM2 and three are patent RIGHT CORONARY ARTERY: Large, dominant vessel giving rise to PDA and PL branches. 40-50% ostial proximal stenosis and 30-40% mid stenosis. PDA and PLV are patent HEMOSTASIS: TR band 12 mario alberto over right radial artery INTERVENTIONS: None. COMPLICATIONS: None FINDINGS: Normal coronary anatomy and severe two-vessel CAD ESTIMATED BLOOD LOSS: 5 cc RECOMMENDATIONS/INSTRUCTIONS: Aggressive risk factor modification. Consult CV surgery for CABG evaluation versus high-risk bifurcation LAD and left circ PCI CONTRAST DELIVERED TO PATIENT (mL): 55cc ROLAND Car MD, MD Apr 21, 2025 10:54
[2025-04-21] MEDS ORDERED: GLUCAGON 1MG KIT 1 MG ML IM PRN (11:00)
[2025-04-21] MEDS ORDERED: DEXTROSE 50%-WATER 50 ML DISP.SYRIN IV PRN (11:00)
[2025-04-21] MEDS ORDERED: 0.9%NACL 1000ML 1,000 ML IV SCH (11:00)
--- NOTE | 2025-04-21 13:00 | NUR ---
Right Radial site clean, dry and intact. No sign of bleeding, bruising or hematoma. VASC Band removed per protocol. Light pressure Coban dressing applied. Instructed Patient and Family of precautions and expectations until discharge. All voiced understanding. Right arm placed on pillow for support.
--- NOTE | 2025-04-21 14:23 | NUR ---
Right Radial site clean, dry and intact. No sign of bleeding, bruising or hematoma. VASC Band intact per protocol. Instructed Patient and Family of precautions and expectations for discharge. All voiced understanding. Right arm placed on pillow for support. Full and complete discharge instructions given to Patient and Family both verbally and in writing. Tolerated fluids and voided in bathroom. PIV removed with catheter tip intact. W/C to POV with Family to home.
== END 2025-04-21 14:30 | disposition home or self-care (01) ==
LOC: DAH 05:39
PROVIDERS: ATTEND Student in an Organized Health Care Education/Training Program
DX: R94.39 Abnormal result of other cardiovascular function study (principal); I25.10 Atherosclerotic heart disease of native coronary artery without angina pectoris; I12.9 Hypertensive chronic kidney disease with stage 1 through stage 4 chronic kidney disease, or unspecified chronic kidney disease; N18.2 Chronic kidney disease, stage 2 (mild); E78.2 Mixed hyperlipidemia; E87.5 Hyperkalemia; G47.33 Obstructive sleep apnea (adult) (pediatric); Z79.01 Long term (current) use of anticoagulants; Z88.1 Allergy status to other antibiotic agents; Z79.899 Other long term (current) drug therapy
CPT/HCPCS: 80048; 83880; 85025; 85610; 85730; 87086 ×2; 81001; 36415; 71045; 93005; 93458; 87186; 82948 ×2; 99156; 99157 ×2; C1769 ×3; C1894; A4649; Q9965; J3010; J0360; J2250 ×2; A4215; A4222; A4221; A4663; A4216; A4606; A4223 ×3; 96360; 96361